=== PATIENT | male | born 1945 | race Caucasian/White ===

== ENCOUNTER 2020-01-15 06:02 | Day surgery (SDC) | payer OTHER ==
[2020-01-07 11:08] VITALS: BMI 25.2
[2020-01-15] MEDS ORDERED: LOCK ITEM NR ONE (06:42)
[2020-01-15] MEDS ORDERED: TAMSULOSIN HCL 0.4 MG CAP ONE (06:44)
[2020-01-15] MEDS ORDERED: ONDANSETRON 4 MG/2 ML VIAL ONE (07:14)
[2020-01-15] MEDS ORDERED: KETOROLAC TROMETHAMINE 30 MG/1 ML VIAL ONE (07:14)
[2020-01-15] MEDS ORDERED: LIDOCAINE HCL/PF 2% SDV 5ML VIAL ONE (07:14)
[2020-01-15] MEDS ORDERED: DEXAMETHASONE SOD PHOSPHATE 4 MG/1 ML VIAL ONE (07:14)
[2020-01-15] MEDS ORDERED: PROPOFOL 20 ML ONE (07:15)
[2020-01-15] MEDS ORDERED: NEOSTIGMINE METHYLSULFATE 0.5 MG/ML - 10 ML MDV ONE (07:16)
[2020-01-15] MEDS ORDERED: GLYCOPYRROLATE 0.2 MG/1 ML VIAL ONE (07:16)
[2020-01-15] MEDS ORDERED: ROCURONIUM BROMIDE 50 MG/5 ML SYRINGE ONE (07:18)
[2020-01-15] MEDS ORDERED: SUCCINYLCHOLINE CHLORIDE 200 MG/10 ML SYRINGE ONE (07:18)
[2020-01-15] MEDS ORDERED: MIDAZOLAM HCL 2 MG/2 ML SINGLE DOSE VIAL ONE (07:20)
[2020-01-15] MEDS ORDERED: ROPIVACAINE HCL 0.5% 30ML VIAL ONE (07:20)
[2020-01-15] MEDS ORDERED: ONDANSETRON 4 MG/2 ML VIAL IVPUSH PRN (07:49)
[2020-01-15] MEDS ORDERED: oxyCODONE HCL 5 MG TABLET PO PRN (07:49)
[2020-01-15] MEDS ORDERED: LACTATED RINGERS SOLUTION 1,000 ML IV SCH (08:00)
[2020-01-15] MEDS ORDERED: EPHEDRINE SULFATE/0.9% NACL/PF 50 MG/10 ML SYRINGE NR ONE (08:11)
[2020-01-15] MEDS ORDERED: oxyCODONE HCL 5 MG TABLET ONE (10:37)
[2020-01-15 10:59] VITALS: TEMP 98
[2020-01-15 11:53] VITALS: BP 116/71; PULSE 70
== END 2020-01-15 11:58 | disposition home or self-care (01) ==
LOC: FASU 06:02
PROVIDERS: ATTEND Surgery
PROC: 0YUA4JZ Supplement Bilateral Inguinal Region with Synthetic Substitute, Percutaneous Endoscopic Approach (ICD-10-PCS; principal; 2020-01-15 08:20)
DX: K40.30 Unilateral inguinal hernia, with obstruction, without gangrene, not specified as recurrent (principal); K40.91 Unilateral inguinal hernia, without obstruction or gangrene, recurrent
CPT/HCPCS: 94760

== ENCOUNTER 2020-06-08 14:38 | Emergency (ER) | payer OTHER ==
[2020-06-08 14:50] VITALS: BP 135/93; PULSE 84; TEMP 97.8; BMI 24.6
[2020-06-08 16:31] LABS: BASO % 0.9 % (0-2.0); HEMATOCRIT 45.5 % (35.4-49); HEMOGLOBIN 15.3 GM/dl (11.7-16.9); LYMPH % 12.1 % (8-40); MCH 30.5 pg (25.7-33.7); MCHC 33.6 g/dl (32.0-35.9); MEAN CELL VOLUME 90.8 fl (80-96); MEAN PLT VOLUME 8.7 fl (7.5-11.1); MONO % 6.6 % (3.8-10.2); NEUT % 79.4 % (42.8-82.8); PLATELET COUNT 238 K/MM3 (134-434); RBC 5.01 M/mm3 (4.00-5.60); RDW 14.4 % (11.9-15.9); WHITE BLOOD COUNT 9.6 K/mm3 (4.0-10.8)
[2020-06-08 16:39] LABS: ALBUMIN 4.4 g/dl (3.4-5.0); ALK PHOS 74 U/L (45-117); ANION GAP 11 MMOL/L (8-16); BILIRUBIN,TOTAL 0.8 mg/dl (0.2-1); CALCIUM 9.2 mg/dl (8.5-10); CHLORIDE 101 mmol/L (98-107); CO2 26 mmol/L (21-32); GLUCOSE,RANDOM 110 mg/dl (74-106); SGOT/AST 18 U/L (15-37); SGPT/ALT 14 U/L (13-61); SODIUM 138 mmol/L (136-145); TOT PROT 7.4 g/dl (6.4-8.2)
== END 2020-06-08 19:25 | disposition home or self-care (01) ==
LOC: FER 14:38
DX: R42 Dizziness and giddiness (principal)
CPT/HCPCS: 36415; 70450-TC; 80053; 84484; 85025; 93005; 99284-25